=== PATIENT | female | born 1930 | race Caucasian/White ===

== ENCOUNTER → 2020-07-10 | Outpatient (CLI) | payer MEDICARE, BC ==
[~2020-07-10] MED LIST: ALLERGY SHOT IM; ASPI81EC PO; ATOR10 PO; CALCIUM PO; CONEST.625 PO; Cozaar PO; DEXILANT PO; FEXO60 PO; LORA10ER PO; MULVITMIND PO; POLY17UD PO; Triamterene PO
== END | disposition home or self-care (01) ==
LOC: LAB 14:06 → LAB SHORT 14:06 → LAB FUT 07-09 15:05
DX: R14.1 Gas pain (principal); R14.0 Abdominal distension (gaseous)
CPT/HCPCS: 87338

== ENCOUNTER 2021-09-23 12:48 | Observation (INO) | payer MEDICARE, BC ==
[~2021-09-23] VITALS: Ht 157.5 cm; Wt 79.4 kg
[~2021-09-23 12:48] MED LIST changes: +Hair, Skin & N1 EACH PO; -MULVITMIND PO
[2021-09-23 14:23] LABS: BASOPHILS ABSOLUTE AUTO 0.08 K/mm3 (0.00-0.23); BASOPHILS PERCENT AUTO 1 % (0-2); EOSINOPHILS ABSOLUTE AUTO 0.25 K/mm3 (0.00-0.68); EOSINOPHILS PERCENT AUTO 2 % (0-6); Hematocrit 44.9 % (33.0-51.0); IMMATURE GRAN ABSOLUTE AUTO 0.07 K/mm3 (0.00-0.10); IMMATURE GRAN PERCENT AUTO 1 % (0-1); LYMPHOCYTES ABSOLUTE AUTO 3.39 K/mm3 (0.84-5.20); LYMPHOCYTES PERCENT AUTO 24 % (21-46); MONOCYTES ABSOLUTE AUTO 1.38 K/mm3 (0.16-1.47); MONOCYTES PERCENT AUTO 10 % (4-13); Mean Corpuscular HGB Conc 33.4 g/dL (31.5-36.5); Mean Corpuscular Volume 87 fL (80-100); Mean Platelet Volume 9.5 fL (9.1-12.4); NEUTROPHILS ABSOLUTE AUTO 9.25 K/mm3 (1.96-9.15); NEUTROPHILS PERCENT AUTO 64 % (41-73); Platelet Count 230 K/mm3 (150-400); RDW Coefficient Variation 14.5 % (11.7-14.2); RDW Standard Deviation 46.1 fL (35.1-46.3); Red Blood Cell Count 5.18 M/mm3 (3.80-5.20); White Blood Cell Count 14.42 K/mm3 (4.00-11.30)
[2021-09-23 14:23] LABS: Source, Urine Clean Catch
[2021-09-23 14:25] LABS: Bilirubin, Urine Neg (Neg); Blood, Urine Neg (Neg); Glucose Qualitative, Urine Neg (Neg); Ketones, Urine Neg (Neg); Leukocyte Esterase, Urine 1+ (Neg); Nitrite, Urine Pos (Neg); Protein, Urine Neg (Neg); Specific Gravity, Urine 1.005 (1.003-1.022); Urobilinogen, Urine NORM (Normal)
[2021-09-23 14:31] LABS: Appearance, Urine Hazy (Clear); Color, Urine Pale Yellow (P-Yellow)
[2021-09-23 14:32] LABS: Bacteria Many /hpf; Red Blood Cells, Urine 0-2 /hpf (0-2); Squamous Epithelial Cells Few /hpf (Few)
[2021-09-23 14:39] LABS: Alanine Aminotransfer (ALT/SGP 42 U/L (12-78); Albumin, Blood 3.8 g/dL (3.4-5.0); Albumin/Globulin Ratio 1.2 (0.8-1.8); Alk Phos 145 U/L (50-136); Anion Gap 11 mmol/L (6-16); Aspartate Aminotrans (AST/SGOT 26 U/L (12-37); Bilirubin, Total 0.6 mg/dL (0.1-1.0); Blood Urea Nitrogen 15 mg/dL (8-24); Bun/Creatinine Ratio 20.3 (12.0-20.0); CO2, Blood 24 mmol/L (21-32); Calcium, Blood 9.6 mg/dL (8.5-10.1); Chloride, Blood 100 mmol/L (98-108); Creatinine, Blood 0.74 mg/dL (0.40-1.00); Globulin, Blood 3.3 g/dL (2.2-4.0); Glomerular Filtration Rate >60 (60-); Glucose, Blood 101 mg/dL (70-99); Potassium, Blood 4.1 mmol/L (3.5-5.5); Sodium, Blood 135 mmol/L (136-145); Total Protein, Blood 7.1 g/dL (6.4-8.2)
[2021-09-23] MEDS ORDERED: SERT100 PO (22:58)
[2021-09-23] MEDS ORDERED: Ativan1 MG PO (22:58)
[2021-09-23] MEDS ORDERED: TRIA50 PO (22:59)
[2021-09-23] MEDS ORDERED: BUSP10 PO (22:59)
[2021-09-23] MEDS ORDERED: LOSA50 PO (23:00)
[2021-09-23] MEDS ORDERED: OMEP20ER PO (23:00)
[2021-09-23] MEDS ORDERED: MIRALAX17 GM PO (23:00)
[2021-09-23] MEDS ORDERED: VIT1CAPS12 PO (23:01)
--- NOTE | 2021-09-23 23:38 | NUR ---
Pt is alert and oriented x3, forgetful of situation. She is able to follow commands. She is legally blind. She can answer questions appropriately, but forgets. RN spoke with Angel for admission. He states that she is DNR, MD Rogers aware. Medications at home are placed in, waiting for MD to reconcile. Spoke with MD and he ordered 1mg lorazapan once now, and states he will reconcile medications. Patient has no complains of pain. No fever. But states she has trouble urinating. Purewick in place. Diet regular per MD rogers. Patient is able to turn with assist. POA is son Gerald. Patient is feeling anxious, PRN medication will be given. O2 at 2L PRN night only. Call light within reach. Bed alarm on.
[2021-09-24 06:18] LABS: BASOPHILS ABSOLUTE AUTO 0.09 K/mm3 (0.00-0.23); BASOPHILS PERCENT AUTO 1 % (0-2); EOSINOPHILS ABSOLUTE AUTO 0.31 K/mm3 (0.00-0.68); EOSINOPHILS PERCENT AUTO 2 % (0-6); Hematocrit 47.9 % (33.0-51.0); Hemoglobin 15.4 g/dL (11.5-16.0); IMMATURE GRAN PERCENT AUTO 1 % (0-1); LYMPHOCYTES ABSOLUTE AUTO 4.27 K/mm3 (0.84-5.20); LYMPHOCYTES PERCENT AUTO 28 % (21-46); MONOCYTES PERCENT AUTO 10 % (4-13); Mean Corpuscular HGB 28.2 pg (26.0-34.0); Mean Corpuscular HGB Conc 32.2 g/dL (31.5-36.5); Mean Corpuscular Volume 88 fL (80-100); Mean Platelet Volume 9.7 fL (9.1-12.4); NEUTROPHILS ABSOLUTE AUTO 9.15 K/mm3 (1.96-9.15); NEUTROPHILS PERCENT AUTO 59 % (41-73); Platelet Count 215 K/mm3 (150-400); RDW Coefficient Variation 14.4 % (11.7-14.2); Red Blood Cell Count 5.46 M/mm3 (3.80-5.20); White Blood Cell Count 15.52 K/mm3 (4.00-11.30)
[2021-09-24 06:48] LABS: Alanine Aminotransfer (ALT/SGP 38 U/L (12-78); Albumin, Blood 3.7 g/dL (3.4-5.0); Alk Phos 142 U/L (50-136); Anion Gap 9 mmol/L (6-16); Aspartate Aminotrans (AST/SGOT 23 U/L (12-37); Bilirubin, Total 0.8 mg/dL (0.1-1.0); Blood Urea Nitrogen 15 mg/dL (8-24); Bun/Creatinine Ratio 19.8 (12.0-20.0); CO2, Blood 27 mmol/L (21-32); Calcium, Blood 9.5 mg/dL (8.5-10.1); Chloride, Blood 100 mmol/L (98-108); Creatinine, Blood 0.76 mg/dL (0.40-1.00); Globulin, Blood 3.6 g/dL (2.2-4.0); Glomerular Filtration Rate >60 (60-); Glucose, Blood 104 mg/dL (70-99); Potassium, Blood 3.4 mmol/L (3.5-5.5); Sodium, Blood 136 mmol/L (136-145); Total Protein, Blood 7.3 g/dL (6.4-8.2)
--- NOTE | 2021-09-24 18:36 | NUR ---
SHIFT SUMMARY- PT ALERT AND ORIENTED TO SELF AND FAMILY, SHE IS VERY FORGETFUL AND LEGALLY BLIND SHE DOES SEE SHAPES AND SHADOWS. SHE IS A HIGH FALL RISK. PT HAD AN EPISODE OF EXPLOSIVE DIARRHEA TODAY, DR MCALLISTER, SHE HAD A FULL SHOWER AFTER THAT. OK TO CHANGE THE STOOL SOFTENER TO PRN AT THIS TIME. PT HAS STATED 8/10 PAIN BUT SHE REFUSES TO TAKE ANY TYLENOL FOR IT. PT STATES IF SHE STAYS STATIONARY IT DOESNT HURT. PT WORKED WITH PT AND OT TODAY, THEY ARE RECOMENDING HOME HEALTH AT THIS TIME. PT CURRENTLY IN THE BATHROOM WITH STAFF NO S&S OF DISTRESS NOTED WILL CTM. SHE PLANS TO GO TO BED AFTER THIS.
[2021-09-24] MEDS ORDERED: ALBU90OI6 INH (20:19)
[2021-09-24] MEDS ORDERED: Dyazide 37.5/251 EA PO (20:20)
[2021-09-24] MEDS ORDERED: SIMETHICONE125 MG PO (20:21)
[2021-09-24] MEDS ORDERED: LACTASE3000 UNIT PO (20:25)
[2021-09-24] MEDS ORDERED: ERGO400 PO (20:26)
[2021-09-24] MEDS ORDERED: ASCO500 PO (20:27)
[2021-09-24] MEDS ORDERED: ALBU90OI INH (20:28)
[2021-09-24] MEDS ORDERED: QVAR REDIHALE10.6 G3 INH (20:30)
[2021-09-24] MEDS ORDERED: AZELASTINE137 MCG/06 (20:32)
[2021-09-25 05:15] LABS: BASOPHILS ABSOLUTE AUTO 0.07 K/mm3 (0.00-0.23); BASOPHILS PERCENT AUTO 1 % (0-2); EOSINOPHILS ABSOLUTE AUTO 0.14 K/mm3 (0.00-0.68); EOSINOPHILS PERCENT AUTO 1 % (0-6); Hematocrit 46.9 % (33.0-51.0); Hemoglobin 15.7 g/dL (11.5-16.0); IMMATURE GRAN ABSOLUTE AUTO 0.05 K/mm3 (0.00-0.10); IMMATURE GRAN PERCENT AUTO 0 % (0-1); LYMPHOCYTES ABSOLUTE AUTO 3.72 K/mm3 (0.84-5.20); LYMPHOCYTES PERCENT AUTO 28 % (21-46); MONOCYTES ABSOLUTE AUTO 1.43 K/mm3 (0.16-1.47); MONOCYTES PERCENT AUTO 11 % (4-13); Mean Corpuscular HGB 28.9 pg (26.0-34.0); Mean Corpuscular HGB Conc 33.5 g/dL (31.5-36.5); Mean Corpuscular Volume 86 fL (80-100); Mean Platelet Volume 10.2 fL (9.1-12.4); NEUTROPHILS ABSOLUTE AUTO 7.98 K/mm3 (1.96-9.15); NEUTROPHILS PERCENT AUTO 60 % (41-73); Platelet Count 248 K/mm3 (150-400); RDW Coefficient Variation 14.3 % (11.7-14.2); RDW Standard Deviation 44.8 fL (35.1-46.3); Red Blood Cell Count 5.44 M/mm3 (3.80-5.20); White Blood Cell Count 13.39 K/mm3 (4.00-11.30)
--- NOTE | 2021-09-25 05:21 | NUR ---
SHIFT SUMMARY: THE PATIENT IS A/OX2-3. SHE WAXES/WANES WITH HER CONFUSION AND DEMENTIA. AT TIMES THE PT IS PLEASANT AND COOPERATIVE, OTHER TIMES SHE DOES NOT TRUST US OR OUR CARE. SHE IS VERY UNSTEADY ON HER FEET W/ FWW AND NEEDS A 2 PA TO THE BSC (STAND AND PIVOT). SHE DOES NOT USE THE CALL LIGHT FOR HER NEEDS, SO FREQUENT ROUNDING IS VERY NECESSARY. THE BED IS IN THE LOWEST POSITION AND THE ALARM IS SET. WE'LL CONTINUE TO MONITOR THE REST OF THE NOC SHIFT.
[2021-09-25 05:36] LABS: Albumin, Blood 3.8 g/dL (3.4-5.0); Anion Gap 11 mmol/L (6-16); Blood Urea Nitrogen 15 mg/dL (8-24); CO2, Blood 22 mmol/L (21-32); Calcium, Blood 9.2 mg/dL (8.5-10.1); Chloride, Blood 104 mmol/L (98-108); Creatinine, Blood 0.84 mg/dL (0.40-1.00); Glomerular Filtration Rate >60 (60-); Glucose, Blood 135 mg/dL (70-99); Phosphorus, Blood 2.8 mg/dL (2.5-4.9); Potassium, Blood 3.5 mmol/L (3.5-5.5); Sodium, Blood 137 mmol/L (136-145)
[2021-09-25] MEDS ORDERED: ATORVASTATIN CALCIUM PO (11:04)
--- NOTE | 2021-09-25 17:56 | NUR ---
SHIFT SUMMARY: PT A/O TO SELF, CONFUSED AND FORGETFUL. DIFFICULT TO RE-ORIENT. PT HAS BEEN PLEASANT ALTHOUGH ANXIOUS AT TIMES BECAUSE SHE DOES NOT KNOW WHERE SHE IS AT. PT REFUSING PAIN MEDICATIONS STATING TYLENOL IS TOO HARD ON HER STOMACH. HEATING PAD APPLIED AND PT REPORTED PAIN TOLERABLE. PT WAS ABLE TO PARTICIPATE WITH PT TODAY. SPOUSE DON REPORTED PT NEEDS TO BE ABLE TO AT LEAST WALK ON HER OWN IN ORDER FOR HER TO COME HOME AND BE SAFE. PT RESTING WITH EYES SHUT RR E/U AT END OF SHIFT, NO S/S OF DISTRESS. BED IN LOW POSITION AND BED ALARM ON.
--- NOTE | 2021-09-25 18:33 | NUR ---
Pt. is sleeping soundly. Prayed with pt. Confirmed with nurse that Pt. has had a very full day. Will attempt to follow up tomorrow.
[2021-09-26 05:02] LABS: BASOPHILS ABSOLUTE AUTO 0.07 K/mm3 (0.00-0.23); BASOPHILS PERCENT AUTO 1 % (0-2); EOSINOPHILS ABSOLUTE AUTO 0.16 K/mm3 (0.00-0.68); EOSINOPHILS PERCENT AUTO 1 % (0-6); Hematocrit 45.8 % (33.0-51.0); Hemoglobin 14.9 g/dL (11.5-16.0); IMMATURE GRAN ABSOLUTE AUTO 0.05 K/mm3 (0.00-0.10); IMMATURE GRAN PERCENT AUTO 0 % (0-1); LYMPHOCYTES ABSOLUTE AUTO 3.31 K/mm3 (0.84-5.20); LYMPHOCYTES PERCENT AUTO 26 % (21-46); MONOCYTES ABSOLUTE AUTO 1.43 K/mm3 (0.16-1.47); MONOCYTES PERCENT AUTO 11 % (4-13); Mean Corpuscular HGB 28.3 pg (26.0-34.0); Mean Corpuscular HGB Conc 32.5 g/dL (31.5-36.5); Mean Corpuscular Volume 87 fL (80-100); Mean Platelet Volume 9.5 fL (9.1-12.4); NEUTROPHILS ABSOLUTE AUTO 7.89 K/mm3 (1.96-9.15); NEUTROPHILS PERCENT AUTO 61 % (41-73); Platelet Count 214 K/mm3 (150-400); RDW Coefficient Variation 14.6 % (11.7-14.2); RDW Standard Deviation 46.6 fL (35.1-46.3); Red Blood Cell Count 5.26 M/mm3 (3.80-5.20); White Blood Cell Count 12.91 K/mm3 (4.00-11.30)
--- NOTE | 2021-09-26 05:32 | NUR ---
SHIFT SUMMARY: AT THE BEGINNING OF THE NOC SHIFT THE PT WAS EXTREMELY CONFUSED AND WANTED TO LEAVE VIA FWW. SHE WAS VERY HARD TO REDIRECTED AND WAS IN THE HALLWAY WITH HER WALKER. GOLF CLUB REPAIRER WERE ABLE TO PUT HER IN A WHEELCHAIR AND WALK HER AROUND THE HALLWAY. SHE WAS STILL WANTING TO LEAVE AND THE DECISION WAS TO PUT HER INTO A TRISTIN VEST, WHICH SHE HAS TOLERATED VERY WELL. SHE SEEMS LESS CONFUSED AROUND 0530, BUT WITH THE WAXING AND WANING SHE WILL REMAIN IN THE VEST THE REMAINDER OF THE SHIFT. THE BED IS IN THE LOWEST POSITION AND HER ALARM IS SET. WE'LL CONTINUE TO MONITOR THE REMAINDER OF THE SHIFT.
[2021-09-26 05:39] LABS: Albumin, Blood 3.7 g/dL (3.4-5.0); Anion Gap 7 mmol/L (6-16); Blood Urea Nitrogen 25 mg/dL (8-24); Bun/Creatinine Ratio 30.5 (12.0-20.0); CO2, Blood 27 mmol/L (21-32); Calcium, Blood 9.5 mg/dL (8.5-10.1); Chloride, Blood 106 mmol/L (98-108); Creatinine, Blood 0.82 mg/dL (0.40-1.00); Glomerular Filtration Rate >60 (60-); Glucose, Blood 126 mg/dL (70-99); Phosphorus, Blood 4.3 mg/dL (2.5-4.9); Potassium, Blood 3.4 mmol/L (3.5-5.5); Sodium, Blood 140 mmol/L (136-145)
--- NOTE | 2021-09-26 10:09 | NUR ---
Pt. was sitting up in bed. Pt. displayed anxiety about her "cold" omelette. Provided empathetic listening and a calming presence. Pt. is unsettled because of diminished eyesight, though pt. also verbalizes that it is improved from the previous day. Establish rapport. Prayed with pt. Pt. displayed gratitude for pastoral prayer. Pt. verbalized improved hope and gratitude for spiritual care. Relayed information to nurse. Updated nurse that it would be good to communicate with Pts. son who is a listed contact, as NOK has a difficult time understanding the nature of the pts. diagnosis.
[2021-09-26] MEDS ORDERED: ACET325 PO (11:21)
[2021-09-26] MEDS ORDERED: DOCU100 PO (11:21)
[2021-09-26] MEDS ORDERED: LEVO750 PO (11:22)
[2021-09-26] MEDS ORDERED: VISBIOME 112.51 EACH PO (11:22)
--- NOTE | 2021-09-26 15:48 | NUR ---
DISCHARGE SUMMARY IV REMOVED PRIOR TO DISCHARGE, DISCHARGE EDUCATION REVIEWED WITH AND SIGNED BY PT. PT TRANSPORTED VIA WHEELCHAIR ALONG WITH PERSONAL BELONGINGS TO [facility] WHERE SHE WAS MET BY HER WHO PROVIDED THE TRANSPORTATION BACK TO THEIR HOME. MEDICATIONS WERE FAXED INTO PT'S PHARMACY.
== END 2021-09-26 14:31 | disposition home or self-care (01) ==
LOC: ER 12:48 → MEDS 21:49 → ER 21:55 → MEDS 22:10 → ENPENDDIS 09-26 10:28 → MEDS 09-26 14:31
PROVIDERS: Internal Medicine; Physician Assistant; ADMIT Internal Medicine
DX: K59.00 Constipation, unspecified (principal); N39.0 Urinary tract infection, site not specified; B96.20 Unspecified Escherichia coli [E. coli] as the cause of diseases classified elsewhere; R53.1 Weakness; I10 Essential (primary) hypertension; K21.9 Gastro-esophageal reflux disease without esophagitis; M48.54XA Collapsed vertebra, not elsewhere classified, thoracic region, initial encounter for fracture; E87.2 Acidosis; F03.90 Unspecified dementia, unspecified severity, without behavioral disturbance, psychotic disturbance, mood disturbance, and anxiety; J96.11 Chronic respiratory failure with hypoxia; M48.56XA Collapsed vertebra, not elsewhere classified, lumbar region, initial encounter for fracture; M19.90 Unspecified osteoarthritis, unspecified site; K52.9 Noninfective gastroenteritis and colitis, unspecified; R91.1 Solitary pulmonary nodule; G92.8 Other toxic encephalopathy; F41.9 Anxiety disorder, unspecified; Z88.0 Allergy status to penicillin; Z88.2 Allergy status to sulfonamides; Z88.1 Allergy status to other antibiotic agents; Z88.8 Allergy status to other drugs, medicaments and biological substances; Z91.018 Allergy to other foods; Z91.81 History of falling
CPT/HCPCS: 36415; 71045; 72080; 74176; 80053; 80069; 81001; 83605; 83690; 85025; 87077; 87086; 87186; 96365; 97116; 97162; 97165; 97530; 97530-CO; 97535; 97535-CO; 99285-25; A9270; J0690; J1650; J7030